=== PATIENT | male | born 1970 | race Caucasian/White ===

== ENCOUNTER 2016-11-05 18:47 | Emergency (ER) | payer OTHER ==
[~2016-11-05] VITALS: Ht 172.7 cm; Wt 86.4 kg
[2016-11-05 18:53] VITALS: BP 192/111; PULSE 112; RESP 16; O2SAT 98
--- NOTE | 2016-11-05 19:10 | ED.REPORT ---
HPI-Chest Pain 40 and Over Date of Service Nov 05, 2016 ED Provider: Dr. Gonzalez Pt is a 46 year old male with a history of chronic back pain, anxiety, and HTN who presents to the ED complaining of cramping chest pain onset 12:00 today. The pt reports that he was working for 2.5 hours in the attic when he started feeling fatigued and shaky. He laid down to calm down with no relief. The pt recently started taking blood pressure medication on 10/23/16 and a muscle relaxer for his chronic back pain. On average, the pt drinks 18 beers per day, but did not drink today. He denies a history heart attack, and blood clots. Nursing Notes Stated Complaint: CP Chief Complaint: Chest Pain Nursing Notes Reviewed: Yes Allergies: Coded Allergies: No Known Allergies (Verified , 03/13/05) Scheduled Tizanidine (Tizanidine) 4 Mg Capsule 4 MG PO QPM Miscellaneous Medications Irbesartan (Irbesartan) 150 Mg Tablet 150 MG PO General Time Seen by MD: 19:09 Chief Complaint Chest pain Hx Obtained From: Patient Arrived By: Walk-in Sudden in Onset?: No Onset Occurred: 9 - 12 hours ago Symptom Duration: Since onset Location: : Substernal Quality: Painful Severity: Current: Moderate Severity: Maximum: Moderate Recent Healthcare: Recent doctor visit Similar Sx Previous: No Past Medical History Past Medical History Anxiety Chronic back pain HTN Denies: Diabetes mellitus Past Surgical History Vasectomy Smoking History Never Smoker Social History Alcohol Use: >5 per day Drug Use: Denies drug use Other Social History: Occupation work in his [employer] business Ambulatory Status Independent Review of Systems Respiratory: Denies: Non-productive cough, Shortness of breath Cardiovascular: Reports: Chest pain Neurologic: Reports: Shaking, Weakness Complete sys rev & neg: except as marked. Physical Exam Initial Vital Signs Vital Signs (First) Date Time Temp Pulse Resp B/P Pulse Ox O2 Delivery O2 Flow Rate FiO2 11/05/16 18:53 36.9 112 16 192/111 98 Room Air Initial VS: Reviewed ENT: Mucous membranes moist, Conjunctiva normal, No scleral icterus Neck: Supple, Non-tender, Full range of motion Extremities: Vascular intact, Neuro intact Skin: Warm, Dry, No cyanosis Neurologic: Alert, Oriented, Nonfocal Psychiatric: Mood/affect normal, Behavior normal, Normal thought content General/Constitutional: Awake, Alert, Cooperative, Not toxic appearing Distress / Hydration: Positive: Distress moderate Behavior: Positive: Anxious Respiratory / Chest: Atraumatic, Breath sounds NL, Breath sounds = bilat Cardiovascular: Regular rhythm, Heart sounds NL Heart Rate / Rhythm: Positive: Tachycardia Abdomen: Atraumatic, Soft, Non-tender Interpretation & Diagnostics Lab Results Interpretation Result Diagram: 11/05/16191411/05/161914 Test 11/05/16 19:15 11/05/16 22:00 White Blood Count 7.0th/mm3 (3.8-10.1) Red Blood Count 4.99mil/mm3 (4.40-5.80) Hemoglobin 16.2g/dL (13.8-17.2) Hematocrit 45.7% (41.0-50.0) Mean Corpuscular Volume 91.6fL (81-100) Mean Corpuscular Hemoglobin 32.5pg (27.0-35.0) Mean Corpuscular Hemoglobin Concent 35.4% (32.0-37.0) Red Cell Distribution Width 11.8% (12.3-15.4) Platelet Count 254bil/L (150-400) Neutrophils (%) (Auto) 72.0% (40-74) Lymphocytes (%) (Auto) 16.2% (14-46) Monocytes (%) (Auto) 9.1% (4-12) Eosinophils (%) (Auto) 1.6% (0-5) Basophils (%) (Auto) 1.0% (0-3) D-Dimer < 0.50mg/L FEU (<0.50) Sodium Level 134mEq/L (134-144) Potassium Level 3.7mEq/L (3.5-5.2) Chloride Level 93mEq/L (97-108) Carbon Dioxide Level 23mmol/L (18-29) Blood Urea Nitrogen 13mg/dL (6-24) Creatinine 0.75mg/dL (0.76-1.27) Estimat Glomerular Filtration Rate 118mL/min (>59) Glucose Level 128mg/dL (60-99) Calcium Level 9.8mg/dL (8.5-10.1) Magnesium Level 1.8mg/dL (1.6-2.6) Total Bilirubin 0.6mg/dL (0.0-1.2) Aspartate Amino Transf (AST/SGOT) 61U/L (0-50) Alanine Aminotransferase (ALT/SGPT) 64U/L (0-44) Alkaline Phosphatase 129U/L (25-150) Total Creatine Kinase 473U/L (21-232) Total Protein 8.1g/dL (6.4-8.4) Albumin 4.9g/dL (3.4-5.0) Hold Farris Top Tube Received (Received) Alcohols < 10mg/dL (0-10) Troponin T < 0.010ug/L (0.0-0.011) ECG Interpretation ECG Interpretation: Sinus tachycardia with a rate of 113. Time: 19:07 Interpreted by: ED physician X-Ray Chest Interpretation Chest Xray Interpretation: IMPRESSION: No acute cardiopulmonary findings. Dictated by: Arpita Smallwood M.D. on 11/05/2016 at 20:05 View: Portable, 1 view Interpretation / Wet Read by: Interpret - Radiologist Re-Eval/Medical Decision Med Decision/Clinical Course Mr. Hernandez presented hypertensive tachycardic and anxious. He had sinus syndrome consistent with alcohol withdrawal as well as dehydration. He was appropriately treated. Serial troponins were negative. D-dimer is negative. EKG is reassuring showed sinus tachycardia. Diagnostics were otherwise reassuring aside from mild rhabdomyolysis. After fluids and benzodiazepines and a beta paulette his vitals were normal and he felt ready be discharged home. Myocardial infarction was ruled out biochemically. He was low risk for pulmonary emboli. D-dimer ruled out PE. I recommend alcohol cessation. He concurs. He was interested in home detox with lorazepam. His is going to assist with this. I made a point blank clear that if he combines Ativan and alcohol it can be life-threatening. He agrees never to do this. He will not drive tonight. He will follow-up closely. Source of Hx: Old records Time of Eval: 21:54 Patient Status: Condition improved Re-Evaluation/Progress Note: Pt rechecked. His condition is improved. All questions were answered. Time of Eval: 22:59 Re-Evaluation/Progress Note: Pt rechecked. All questions were answered. Time of Eval: 23:35 Re-Evaluation/Progress Note: Pt rechecked. Pt denies history of blood clot or SOB. All questions were answered. Time of Eval: 00:00 Patient Status: Condition improved Re-Evaluation/Progress Note: Pt rechecked. Informed pt of plan for discharge. Pt understands and agrees with plan for discharge. F/U instructions and RTER warnings given. All questions addressed. Counseled Regarding: Diagnosis, Lab results, Need for follow-up, When/why to return to ED Discharge & Departure Primary Impression: Dehydration Additional Impressions: Alcohol withdrawal Complication of substance-induced condition: uncomplicated Qualified Code: F10.230 - Alcohol dependence with withdrawal, uncomplicated Anxiety Chest pain Chest pain type: unspecified Qualified Code: R07.9 - Chest pain, unspecified Disposition: Home Discharge Condition All VS Reviewed: Yes Condition: Stable Patient Instructions: Alcohol Withdrawal (ED), Chest Pain (ED), Dehydration (ED ) Additional Instructions: The heart blood tests were normal. Your laboratory work showed evidence of dehydration and very mild rhabdomyolysis. I suspect also that you were suffering from alcohol withdrawal. I recommended that you stay well-hydrated and abstain from consuming alcohol. Complete the lorazepam taper as instructed. This will help prevent withdrawal symptoms. It is imperative that you do not combine alcohol and lorazepam as the combination can be life- threatening. Call your primary care physician tomorrow morning for follow-up. Return if any problems or any new or worsening symptoms. Do not drive tonight or do not drive or consume alcohol with taking the Ativan. Referrals: Aristides Borden MD (PCP) Scribe Attestation Portions of this note were transcribed by Trinidad Stanley. I, Dr. Gonzalez personally performed the history, physical exam and medical decision-making; I reviewed and confirmed the accuracy of the information in the transcribed note. Signed by: Lyssa Ferreira, 11/05/16 and 20:00 copies to: Aristides Borden MD, Todd P DO Nov 05, 2016 19:10 Trinidad Copeland Nov 05, 2016 19:20
[2016-11-05] MEDS ORDERED: Nitroglycerin 2% 1 Gm Ointment TOPICAL ONE (19:20)
[2016-11-05] MEDS ORDERED: MeTOProlol 1 mg/mL 5 mL Inj IVPUSH ONE (19:20)
[2016-11-05 19:25] VITALS: BP 203/101; PULSE 112; RESP 17; O2SAT 97
[2016-11-05 19:32] LABS: EOSINOPHILS % (AUTO) 1.6 % (0-5); MONOCYTES % (AUTO) 9.1 % (4-12); Mean Corpuscular Hemoglobin 32.5 pg (27.0-35.0); Mean Corpuscular Volume 91.6 fL (81-100); Platelet Count 254 bil/L (150-400)
[2016-11-05] MEDS: 0.9% Sodium Chloride 1,000 ML IV SCH ×2 (19:32→20:30)
[2016-11-05 19:49] LABS: TROPONIN T < 0.010 ug/L (0.0-0.011)
[2016-11-05] MEDS ORDERED: IRBE150T28 PO (19:54)
[2016-11-05] MEDS ORDERED: TIZA4CAP8 PO (19:54)
[2016-11-05 19:57] LABS: Creatine Kinase 473 U/L (21-232); Magnesium 1.8 mg/dL (1.6-2.6)
--- NOTE | 2016-11-05 20:08 | DRSVH ---
PROCEDURE: X-RAY CHEST ONE VIEW, PORTABLE ([id number]) INDICATIONS: CHEST PAIN, HTN TECHNIQUE: One view of the chest was acquired. COMPARISON: None. FINDINGS: Surgical changes and devices: None. Lungs and pleura: No pleural effusions or pneumothorax. Lungs are clear. Mediastinum: Mediastinal contours appear normal. Heart size is normal. Bones and chest wall: No suspicious bony lesions. Overlying soft tissues appear unremarkable. IMPRESSION: No acute cardiopulmonary findings. Dictated by: Arpita Smallwood M.D. on 11/05/2016 at 20:05 Approved by: Arpita Smallwood M.D. on 11/05/2016 at 20:06
[2016-11-05] MEDS ORDERED: _LORazepam 2 MG Tablet PO SCH (22:10)
== END 2016-11-06 | disposition home or self-care (01) ==
LOC: SED 18:47
DX: E86.0 Dehydration (principal); F10.230 Alcohol dependence with withdrawal, uncomplicated; F41.9 Anxiety disorder, unspecified; R07.89 Other chest pain; I10 Essential (primary) hypertension; M54.9 Dorsalgia, unspecified; G89.29 Other chronic pain
CPT/HCPCS: 36415; 71010; 80053; 82550; 83735; 84484; 85025; 85378; 93005; 96361; 96374; 96375; 99285; G0480; J3360; J7030